=== PATIENT | male | born 1965 | race Caucasian/White ===

== ENCOUNTER 2022-08-02 06:20 | Day surgery (SDC) | payer BC ==
[~2022-08-02] VITALS: Ht 175.3 cm; Wt 74.8 kg
[2022-08-02] MEDS ORDERED: CEFAZOLIN SOD 2 GM in D5W 50 ML IV ONE (07:00)
[2022-08-02] MEDS ORDERED: NS IRRIG SOLN 1000 ML IR ONE (08:20)
[2022-08-02] MEDS ORDERED: SUGAMMADEX SODIUM 200 MG/2 ML VIAL IV ONE (08:20)
[2022-08-02] MEDS ORDERED: SUCCINYLCHOLINE CHLORIDE 20 MG/ML(QUELICIN) ONE (08:20)
[2022-08-02] MEDS ORDERED: LR 1,000 ML IV.SOLN IV ONE (08:20)
[2022-08-02] MEDS ORDERED: fentaNYL CITRATE/PF 100 MCG/2 ML AMP ONE (08:20)
[2022-08-02] MEDS ORDERED: SEVOFLURANE 15 MIN GAS INH ONE (08:20)
[2022-08-02] MEDS ORDERED: DEXAMETHASONE SOD PHOSPHATE 4 MG/ML VIAL ONE (08:20)
[2022-08-02] MEDS ORDERED: ROCURONIUM BROMIDE 10 MG/ML (ZEMURON) ONE (08:20)
[2022-08-02] MEDS ORDERED: BUPIVACAINE /PF 0.25% 30 ML VIAL INJ ONE (08:20)
[2022-08-02] MEDS ORDERED: MEPERIDINE HCL/PF 50 MG/ML VIAL ONE (08:20)
[2022-08-02] MEDS ORDERED: PROPOFOL 200MG/ 20ML VIAL (DIPRIVAN) IV ONE (08:20)
[2022-08-02] MEDS ORDERED: MEPERIDINE HCL/PF 25 MG/ML DISP.SYRIN IVP PRN (09:00)
[2022-08-02] MEDS ORDERED: METOCLOPRAMIDE HCL 10 MG/2 ML VIAL IVP PRN (09:00)
[2022-08-02] MEDS ORDERED: KETOROLAC TROMETHAMINE 30 MG VIAL IVP PRN (09:00)
[2022-08-02] MEDS ORDERED: LR 1,000 ML IV SCH (09:00)
[2022-08-02] MEDS ORDERED: HYDROmorphone 1 MG/ML INJ. CARTRIDGE IVP PRN (09:00)
[2022-08-02] MEDS ORDERED: ONDANSETRON HCL 4 MG/2 ML VIAL IVP PRN (09:00)
[2022-08-02] MEDS ORDERED: BUPIVACAINE LIPOSOME/PF 266 MG/20 ML VIAL INFIL ONE (09:18)
[2022-08-02] MEDS ORDERED: traMADol HCL HCL 50 MG TABLET (ULTRAM) PO PRN (10:45)
[2022-08-02 13:15] VITALS: BP_SYST 123
== END 2022-08-02 12:15 | disposition home or self-care (01) ==
LOC: SDS 06:20 → SMU 06:24 → SDS 12:15
PROVIDERS: ATTEND Surgery
DX: K40.90 Unilateral inguinal hernia, without obstruction or gangrene, not specified as recurrent (principal); I10 Essential (primary) hypertension; K21.9 Gastro-esophageal reflux disease without esophagitis; Z20.822 Contact with and (suspected) exposure to COVID-19
CPT/HCPCS: 49505; 36415; 88302; 87426; C1781; J3490 ×2; C9290; J0690; J1100; J2704; J0330; J3010; J2175; J7060; J7120